=== PATIENT | female | born 2000 | race Hispanic/Latino ===

== ENCOUNTER 2024-05-25 21:32 | Emergency (ER) | payer SELFPAY ==
[2024-05-25 21:35] VITALS: BP 139/82
--- NOTE | 2024-05-25 22:24 | ED.GENMED ---
History of Present Illness
<Brandy Angel MD, Resident - Last Filed: 05/26/24 03:29>
General
Chief Complaint: Abdominal Pain
Source: patient and family
Time Seen by Provider: 05/25/24 22:06
History of Present Illness
History of Present Illness:
This is a 24-year-old female patient with no significant past medical who presents to the ED with abdominal pain. History is obtained from both patient and her family member due to language barrier (pt is [place]ak-speaking) She states that her
abdominal pain started yesterday afternoon which is located in the epigastric region, continuous and radiates to the back. Patient had a severe episode that she rated 10 out of 10 yesterday compared to today whenever she feels significantly better.
This is associated with nausea and 1 episode of nonbloody emesis. Abdominal pain is relieved when she is in a sitting position and mildly gets worse after meals and on taking deep inspiration. She denies any fever, chills or diarrhea. She is not
currently on any regular medications. She admits to having irregular menstrual cycles and is currently on day one of her cycle. She denies any history of travel.
Past History
<Brandy Angel MD, Resident - Last Filed: 05/26/24 03:29>
Past History
ED Past Medical History: None
ED Past Surgical History: None
Social History
Tobacco: Non-smoker
Alcohol: None
Employment: Employed
Family History
Family History: Diabetes (mother)
Review of Systems
<Brandy Angel MD, Resident - Last Filed: 05/26/24 03:29>
Review of Systems
Constitutional: Denies fever or chills
Cardiac: Denies chest pain or palpitations
ABD/GI: Reports abdominal pain, nausea and vomiting; Denies diarrhea
: Denies dysuria
Neurological: Denies headache
Phy Exam
<Brandy Angel MD, Resident - Last Filed: 05/26/24 03:29>
General Physical Exam
General Presentation: well appearing
Cardiovascular Exam
Cardiovascular Exam: regular rate/rhythm and no murmur
Heart Sounds: normal
Pulmonary Exam
Pulmonary Exam: lungs clear
Gastrointestinal Exam
Gastrointestinal Exam: soft, non distended and tender (Epigastric area)
Neurological Exam
Neurological Exam: oriented x3 and speech normal
Musculoskeletal Exam
Musculoskeletal Exam: back pain and edema
Skin Exam
Skin Exam: warm/dry
Psychiatric Exam
Psychiatric Exam: normal mood/affect
Course
<Brandy Angel MD, Resident - Last Filed: 05/26/24 03:29>
Orders/Labs/Results
Orders:
Orders
05/25/24 22:41
Test Result ONCE
05/25/24 22:42
Pantoprazole [Protonix] 40 mg PO NOW STA
US Abdomen Complete/Upper Urgent
Comment:
Reason For Exam: epigastric pain
05/25/24 22:52
CBC/No Diff [Complete Blood Count/No Diff] Urgent
CMP [Comprehensive Metabolic Panel] Urgent
Lipase Urgent
05/25/24 23:40
Beta Hcg Urine Qualitative Screen [HCG, Urine Qualitative Screen] Urgent
Date Specimen was Collected: 05/25/24
Time Specimen was Collected: 23:39
05/26/24 02:24
Ketorolac [Toradol] 30 mg IM NOW STA
Abnormal Lab Results
05/25/24
22:52
WBC 13.1 H 10^3/uL
(4.8-10.8)
Carbon Dioxide 31 H mmol/L
(22-30)
05/25/24 22:52
05/25/24 22:52
Vital Signs
Initial and Last Documented VS:
Initial Vital Signs
Temp Pulse Resp BP Pulse Ox
98.5 F 80 19 139/82 98
05/25/24 21:35 05/25/24 21:35 05/25/24 21:35 05/25/24 21:35 05/25/24 21:35
Last Documented Vital Signs
Temp Pulse Resp BP Pulse Ox
98.5 F 70 18 128/85 100
05/25/24 21:35 05/26/24 03:18 05/26/24 03:18 05/26/24 02:05 05/26/24 03:18
<Jaden Merino, DO - Last Filed: 05/25/24 22:46>
Orders/Labs/Results
Orders:
Orders
05/25/24 22:41
Test Result ONCE
05/25/24 22:42
Pantoprazole [Protonix] 40 mg PO NOW STA
US Abdomen Complete/Upper Urgent
Comment:
Reason For Exam: epigastric pain
05/25/24 22:52
CBC/No Diff [Complete Blood Count/No Diff] Urgent
CMP [Comprehensive Metabolic Panel] Urgent
Lipase Urgent
05/25/24 23:40
Beta Hcg Urine Qualitative Screen [HCG, Urine Qualitative Screen] Urgent
Date Specimen was Collected: 05/25/24
Time Specimen was Collected: 23:39
05/26/24 02:24
Ketorolac [Toradol] 30 mg IM NOW STA
Abnormal Lab Results
05/25/24
22:52
WBC 13.1 H 10^3/uL
(4.8-10.8)
Carbon Dioxide 31 H mmol/L
(22-30)
05/25/24 22:52
05/25/24 22:52
Vital Signs
Initial and Last Documented VS:
Initial Vital Signs
Temp Pulse Resp BP Pulse Ox
98.5 F 80 19 139/82 98
05/25/24 21:35 05/25/24 21:35 05/25/24 21:35 05/25/24 21:35 05/25/24 21:35
Last Documented Vital Signs
Temp Pulse Resp BP Pulse Ox
98.5 F 70 18 128/85 100
05/25/24 21:35 05/26/24 03:18 05/26/24 03:18 05/26/24 02:05 05/26/24 03:18
<Brandy Angel MD, Resident - Last Filed: 05/26/24 03:29>
MDM/Problems Addressed
Differential Diagnosis Includes:
GERD, Biliary cholic
<Brandy Angel MD, Resident - Last Filed: 05/26/24 03:29>
*Critical Care Note
Total Time (30-74mins, 75-104mins- exclusive of procedures): Not Applicable
<Brandy Angel MD, Resident - Last Filed: 05/26/24 03:29>
Update Note
Update Note:
US Abd ordered. Patient is not currently in pain, only on inspiration. Torodol given for pain management. US abd showed no significant findings. Patient discharged with omeprazole and advised to follow up with GI or PCP.
ED Attending Note
<Brandy Angel MD, Resident - Last Filed: 05/26/24 03:29>
-
Portions of this chart may have been created with voice recognition software.� Occasional wrong word or��sound alike� substitutions may have occurred due to the inherent limitations of voice recognition software.
<Jaden Merino, DO - Last Filed: 05/25/24 22:46>
ED Attending Note
Patient seen and examined by attending physician: Yes
I performed a history and physical exam of patient and discussed management with resident, I reviewed resident's note and agree with documented findings and plan of care.: Yes
ED Attending Note:
I have seen and evaluated the patient with a [id number] encounter. I have spoken to the resident and involved in the medical history, the physical exam, medical decision making.
Evaluation and management service: agree unless noted differently below.
Results interpretation: agree unless noted differently below.
Focused HPI: 24-year-old female presenting with upper abdominal pain. Symptoms are worse when she eats and worse when she lays down. She denies fevers
Physical exam: Mild epigastric tenderness. No rebound
Medical Decision Making: Discussed with patient this is likely reflux related. Will start PPI. Will obtain basic blood work and rule out gallbladder pathology
Discharge Plan
Departure
Patient Disposition: Home (Routine Discharge)
Date of Disposition: 05/26/24
Time of Disposition: 03:05
Patient with high blood pressure during this ER visit?: No
Discharge Problem:
GERD (gastroesophageal reflux disease)
Prescriptions:
New
omeprazole 40 mg capsule,delayed release(DR/EC)
40 mg PO DAILY Qty: 30 0RF
Referrals:
[facility] [Outside]
Interventions
Interventions:
*Risk Screen - Suicide Last Done: 05/25/24 21:35
*General Assessment Last Done: 05/26/24 03:18
*Neglect/Abuse Screening Last Done: 05/25/24 21:35
ED- Fall Risk Assessment Last Done: 05/25/24 22:55
*ED COVID-19 Vaccine History Last Done: 05/26/24 03:18
*Nursing Disposition Last Done: 05/26/24 03:18
XV-Xszjar-[id number] Assessment Last Done: 05/25/24 22:55
Discharge Date and Time
Discharge Date/Time: 05/26/24 03:20
Print Language: [id number]
[2024-05-25] MEDS: PROTONIX 40 MG PO (22:48)
[2024-05-25 22:52] VITALS: BMI 34.0
[2024-05-25 23:00] LABS: Hematocrit 38.8 % (37.0-47.0); Hemoglobin 13.3 g/dL (12.0-16.0); Mean Corp Hgb Conc. 34.3 g/dL (33.0-37.0); Mean Corpuscular Volume 90.4 fL (81.0-99.0); Mean Platelet Volume 8.4 fL (7.4-10.4); Platelet Count 316 10^3/uL (130-400); Red Blood Cell Count 4.29 10^6/uL (4.20-5.40); Red Cell Dist. Width 12.1 % (11.5-14.5); White Blood Cell Count 13.1 10^3/uL (4.8-10.8)
[2024-05-25 23:18] LABS: ALT (SGPT) 12 U/L (0-35); AST (SGOT) 19 U/L (14-36); Albumin 4.7 g/dl (3.5-5.0); Alkaline Phosphatase 60 U/L (38-126); Blood Urea Nitrogen 12 mg/dl (7-17); Calcium 9.8 mg/dl (8.4-10.2); Carbon Dioxide 31 mmol/L (22-30); Chloride 101 mmol/L (98-107); Estimated Creatinine Clearance 109 ml/min; Glucose 96 mg/dl (70-99); Lipase 182 U/L (23-300); Potassium 4.2 mmol/L (3.5-5.1); Sodium 140 mmol/L (135-145); Total Bilirubin 0.3 mg/dl (0.2-1.3); Total Protein 7.4 g/dl (6.3-8.2); eGFR > 60.00
[2024-05-25 23:56] LABS: HCG, Urine Qualitative Screen Negative
[2024-05-26 02:05] VITALS: BP 128/85
[2024-05-26] MEDS: TORADOL 30 MG IM (02:28)
== END 2024-05-26 03:20 | disposition home or self-care (01) ==
LOC: EMR 21:32
PROVIDERS: Student in an Organized Health Care Education/Training Program; EMERGENCY PHYSICIAN Student in an Organized Health Care Education/Training Program
DX: K21.9 Gastro-esophageal reflux disease without esophagitis (principal)
CPT/HCPCS: 99284; 96372; 76700; 80053; 81025; 83690; 85027